=== PATIENT | male | born 2000 | race Hispanic/Latino ===

== ENCOUNTER 2024-04-16 22:06 | Emergency (ER) | payer SELFPAY ==
[2024-04-16] MEDS: ketOROlac 15MG/ML VIAL (15MG/ML) IM ONE (23:21)
--- NOTE | 2024-04-16 23:23 | ERN ---
ED Note History of Present Illness Stated Complaint: FALL, NASAL LAC Chief Complaint: Mechanical Fall Time Seen by MD: 22:43 Dictation: This is a 23-year-old obese male with severe schizophrenia was apparently wandering on the streets when police Department picked him up and he was eventually evaluated at [facility]. Subsequently he was transferred to [facility] unit for management yesterday. This morning when the nurses noticed he came out of his room with a bloody nose and laceration and active bleeding. He was unable to give much information and nurses basically sent him to the emergency room here with a history of fall which was unwitnessed. During my evaluation patient was extremely catatonic and basically was staring and very slow to answer questions however after a established communication he was shocked that he was still alive and he stated that he was trying to kill himself by banging his head and hurting himself. Temperature 97.5 pulse 100 respirations 18 blood pressure 136/94 with a pulse oximetry of 94% on room air Allergies: Coded Allergies: No Known Drug Allergies (Unverified Allergy, Unknown, 04/16/24) Past Medical History Past Medical History: Schizophrenia Surgical History: None PSYCH History: prior suicide attempt, schizophrenia Family History: Negative Social History: Negative RN Note Reviewed/Agreed w/PFSH: Yes Review of System Dictation Extremely difficult to obtain history and communicate with the patient due to severe schizophrenia and catatonic behavior. However he did intermittently mention when I had asked him if he had pain in the fractured nose area he did not yes Constitutional: Negative for fever,chills, and weight loss Eyes: Negative for injury, pain,redness, and discharge ENT: Negative for injury,pain or swelling Cardiovascular: Negative for chest pain, palpitations, and edema Respiratory: Negative for shortness of breath, cough, and wheezing, Abdomen/GI: Negative for abdominal pain, nausea, vomiting, diarrhea, and constipation Back: Negative for injury and pain : Negative for injury, bleeding and discharge MS/Extremity: Negative for injury and deformity Skin: Negative for rash, and discoloration Neuro: Negative for headache, weakness, numbness, tingling, and seizure Psych: Negative for suicide ideation, homicidal ideation, and hallucinations Initial Vital Sign VS Vital Signs Date Time Temp Pulse Resp B/P (MAP) Pulse Ox O2 Delivery O2 Flow Rate FiO2 04/16/24 22:14 97.5 100 18 136/94 99 Room Air 0 04/16/24 22:43 21 Physical Exam Dictation General: awake, alert, NAD morbidly obese, severe schizophrenia with a slow response to any question. Mostly mute however intermittently answers few questions, he was in his behavioral health scrubs Head/Face: Normocephalic, deformity of the nose with linear laceration of the nose extending on the nasal bridge to the tip of the nose. Old dried blood with surrounding edema and swelling. Small amount of the blood trickle down his lips and tongue. Eyes: PERRL, EOMI, vision at baseline ENT: oral cavity clear, TMs clear, no signs of infection Neck: Trachea midline, supple, no nuchal rigidity Cardiovascular: RRR, normal S1/S2, No MRGs, no JVD Respiratory: CTAB, no respiratory distress, No rales or wheezes Abdomen: Soft, non-tender, non-distended, normal bowel sounds, no guarding or rebound. Skin: Warm, dry, normal turgor, no rash MS/Extremity: Pulses equal, no cyanosis, neurovascular intact, FROM Neuro: COAx4, GCS 15, strength 5/5, CN 2-12 intact, normal cerebellar exam, nor mal gait, Psych: Normal behavior, mood, and affect normal Extremities-trace edema without any palpable cords, Homans sign is negative Results (Laboratory/Radiology) Laboratory/Radiology Laboratory Tests Test 04/16/24 23:39 White Blood Count 19.6 K/uL (4.8-10.8) H Red Blood Count 4.82 MIL/uL (4.50-6.20) Hemoglobin 14.8 g/dL (14.0-18.0) Hematocrit 41.9 % (42-54) L Mean Corpuscular Volume 86.9 fL (79-99) Mean Corpuscular Hemoglobin 30.7 pg (27.0-33.0) Mean Corpuscular Hemoglobin Concent 35.3 g/dL (32.0-36.0) Red Cell Distribution Width 12.5 % (11.0-15.5) Platelet Count 322 K/uL (130-400) Mean Platelet Volume 9.9 fL (7.5-10.5) Immature Granulocyte % (Auto) 0.5 % (0-1) Neutrophils (%) (Auto) 85.5 % (40.0-77.0) H Lymphocytes (%) (Auto) 6.5 % (21.0-51.0) L Monocytes (%) (Auto) 7.1 % (3.0-13.0) Eosinophils (%) (Auto) 0.1 % (0.0-8.0) Basophils (%) (Auto) 0.3 % (0.0-5.0) Neutrophils # (Auto) 16.8 K/uL (1.8-7.7) H Lymphocytes # (Auto) 1.3 K/uL (1.0-4.8) Monocytes # (Auto) 1.4 K/uL (0.1-1.0) H Eosinophils # (Auto) 0.02 K/uL (0.00-0.70) Basophils # (Auto) 0.05 K/uL (0.00-0.20) Absolute Immature Granulocyte (auto 0.09 K/uL (0-1) Nucleated Red Blood Cells 0.0 % (0.0-0.19) White Cell Morphology Comment CONSISTENT W/DIFF Sodium Level 147 mmol/L (136-145) H Potassium Level 3.3 mmol/L (3.5-5.1) L Chloride Level 106 mmol/L (101-111) Carbon Dioxide Level 31 mmol/L (21-32) Blood Urea Nitrogen 14 mg/dL (7-18) Creatinine 1.1 mg/dL (0.5-1.3) Glomerular Filtration Rate Calc 96 mL/min (>90) Random Glucose 106 mg/dL (70-105) H Total Calcium 9.3 mg/dL (8.5-10.1) Labs Reviewed?: Yes CT Scan Comment: PATIENT: DELROY HACKETT MR#: [id number] : 2000 SEX: M AGE: 23 LOCATION: [facility] ORDER 00 STATUS: REG REPORT#: [id number] SERVICE 99 REASON: severe facial injury deep laceration fo the nose ORDERING PHYSICIAN: ROBERTA AKERS MD PROCEDURE: [facility] WO - CT MAXILLOFACIAL W/O CONTRAST CT MAXILLOFACIAL W/O CONTRAST HISTORY: Status post fall COMPARISON: None TECHNIQUE: Multiple sequential high-resolution axial images of the paranasal sinuses were obtained. Postprocessing sagittal and coronal reconstruction images were also obtained. Patient was not given contrast through intravenous route. FINDINGS: Nasal septum is grossly midline. There is no evidence of mucoperiosteal thickening involving the paranasal sinuses. The infundibula are patent bilaterally. Comminuted fractures are seen of the nasal spine and bilateral nasal bones. Adjacent soft tissue swelling is seen. There is no evidence of air-fluid level in the paranasal sinuses. Parapharyngeal fat planes are preserved bilaterally. IMPRESSION: 1. Comminuted fractures are seen of the nasal spine and bilateral nasal bones. Adjacent soft tissue swelling is seen. CT was performed with one or more following dose reduction techniques: automated exposure control, adjustment of the mA and kv according to patient's size, or use of a iterative reconstruction technique. DICTATED BY: DERRICK SOLO MD DATE: 04/16/248 ELECTRONICALLY SIGNED BY: DERRICK SOLO MD DATE: 04/16/24 2341 ED Course ED Course Orders Procedure Category Date Status Time Cbc With Differential LAB 04/16/24 Complete 23:00 Basic Metabolic Panel LAB 04/16/24 Complete 23:00 Ct Maxillofacial W/O CT 04/16/24 Resulted Contrast 23:00 12 Lead Ekg Tracing- EKG 04/16/24 Logged Technical 23:00 Ketorolac PHA 04/16/24 Complete Tromethamine 15mg/Ml 23:30 Tetanus,Diphtheria PHA 04/17/24 Complete Tox [Adult] (Diphther 01:00 Morphine 2mg Syg PHA 04/17/24 Complete (Morphine 2mg Syg) 01:00 Ceftriaxone 1g Vial PHA 04/17/24 Complete (Rocephine 1g Inj) 01:00 Oxymetazolone Hcl PHA 04/17/24 In Process Western (Afrin) 01:00 Dermabond (Dermabond) PHA 04/17/24 In Process 01:00 Ceftriaxone 1g Vial PHA 04/17/24 Complete (Rocephine 1g Inj) 01:30 Current Medications Medications (Trade) Dose Ordered Sig/Jesu Route PRN Reason Start Time Stop Time Status Last Admin Dose Admin Ceftriaxone Sodium (ROCEphine 1G INJ) 1 gm ONCE ONCE IM 04/17/24 01:30 04/17/24 01:31 DC 04/17/24 01:16 Ceftriaxone Sodium (ROCEphine 1G INJ) 1 gm ONCE ONCE IVPB 04/17/24 01:00 04/17/24 01:02 DC Ketorolac Tromethamine (toRADol) 15 mg ONCE ONCE IM 04/16/24 23:30 04/16/24 23:31 DC 04/16/24 23:21 Morphine Sulfate (morPHINE 2MG SYG) 2 mg ONCE ONCE IVP 04/17/24 01:00 04/17/24 01:01 DC 04/17/24 01:16 Octyl Cyanoacrylate (Dermabond) 1 each ONCE TP 04/17/24 01:00 05/17/24 00:59 04/17/24 01:23 Oxymetazoline HCl (AFrin) 1 sprays ONCE EN 04/17/24 01:00 05/17/24 00:59 04/17/24 01:15 Tetanus/ Diphtheria Toxoids Adsorbed (DiphthERIA-teTANUS TOXOID [ADULT]/ DECAVAC) 0.5 ml ONCE ONCE IM 04/17/24 01:00 04/17/24 01:01 DC 04/17/24 01:23 Vital Signs Date Time Temp Pulse Resp B/P (MAP) Pulse Ox O2 Delivery O2 Flow Rate FiO2 04/16/24 22:43 100 18 134/84 97 Room Air* 0 21 04/16/24 22:14 97.5 100 18 136/94 99 Room Air 0 We will perform diagnostic labs, advanced imaging and administer medications according to the patient's complaint. Once the results are available, will review and personally interpreted the labs to rule out any acute life- threatening emergency the trach require immediate intervention and treatment. I will then re-evaluate the patient after treatment and diagnostic exams have return to determine whether the patient requires any further testing, can safely be discharged home or need further admission to hospital for additional treatment and evaluation. I reviewed the labs and also pursued a CT maxillofacial due to significant facial and nasal trauma. Patient was also given tetanus shot and empiric antibiotic therapy The CT scan of the facial bones showed isolated comminuted nasal bone fractures. No other fractures were seen. Once this was confirmed the laceration was repaired using Dermabond . Patient will be discharged on outpatient antibiotics back to the [facility] unit. Patient is accompanied by the behavioral health staff from the [facility] who was also updated to pass the information to the appropriate nurses and physicians in the [facility] unit Medical Decision Making MDM MDM: Differential diagnosis: Rationale: Tests considered and ordered secondary to shared decision making include: Previous outside records reviewed: Old ER visits. Risk of complication and/or morbidity or mortality of patient management: None Medications-Per medication reconciliation Need for hospitalization: Patient does not meet criteria for hospitalization. Need for emergency major/minor surgery: No There are no social concerns with this patient. Prescription drug management Prescriptions will include symptomatic care Patient's prior external medical records from other ER visits were reviewed by me as indicated. Prior testing and results from previous visits were reviewed. Prior tests were taken into account with medical decision making and resource utilization, independent historian/historians were used to obtain complete medical history. I independently interpreted the test that were performed, results were reviewed by me and considered findings on radiology if ordered. Medical management and examination interpretation discussions were had by me with other qualified healthcare professionals as indicated for the patient's care. Problem List Problem List: (1) Nasal bones, closed fracture (2) Laceration of nose (3) Injury of nose DX & DISP Disposition: Discharge Departure Impression: Primary Impression: Injury of nose Additional Impressions: Laceration of nose, Nasal bones, closed fracture, Schizophrenia Condition: Stable Additional Instructions: Patient and the caregiver have been informed of all the diagnostic tests and the imaging conducted during the today's visit to the emergency room and has verbalized understanding of the results I have personally reviewed and in terpreted all diagnostic exams performed here in the ER today as well as the vital signs documented by the nursing staff. The patient is now being discharged to [facility] and should follow up with the primary care physician or the specialist as directed by the ER staff. We have given him a handwritten prescription for Augmentin 875 mg twice a day for 10 days as it is a comminuted fracture of the nasal bone We also recommend that the patient be seen by ENT in follow-up ROBERTA AKERS MD Apr 16, 2024 23:23
--- NOTE | 2024-04-16 23:41 | HMCIMG ---
CT MAXILLOFACIAL W/O CONTRAST HISTORY: Status post fall COMPARISON: None TECHNIQUE: Multiple sequential high-resolution axial images of the paranasal sinuses were obtained. Postprocessing sagittal and coronal reconstruction images were also obtained. Patient was not given contrast through intravenous route. FINDINGS: Nasal septum is grossly midline. There is no evidence of mucoperiosteal thickening involving the paranasal sinuses. The infundibula are patent bilaterally. Comminuted fractures are seen of the nasal spine and bilateral nasal bones. Adjacent soft tissue swelling is seen. There is no evidence of air-fluid level in the paranasal sinuses. Parapharyngeal fat planes are preserved bilaterally. IMPRESSION: 1. Comminuted fractures are seen of the nasal spine and bilateral nasal bones. Adjacent soft tissue swelling is seen. CT was performed with one or more following dose reduction techniques: automated exposure control, adjustment of the mA and kv according to patient's size, or use of a iterative reconstruction technique.
[2024-04-16 23:46] LABS: BASOPHILS # (AUTO) 0.05 K/uL (0.00-0.20); BASOPHILS % (AUTO) 0.3 % (0.0-5.0); EOSINOPHILS # (AUTO) 0.02 K/uL (0.00-0.70); EOSINOPHILS % (AUTO) 0.1 % (0.0-8.0); HEMATOCRIT 41.9 % (42-54); IMMATURE GRANULOCYTE ABSOLUTE 0.09 K/uL (0-1); LYMPHOCYTES # (AUTO) 1.3 K/uL (1.0-4.8); LYMPHOCYTES % (AUTO) 6.5 % (21.0-51.0); MEAN CORPUSCULAR HEMOGLOBIN 30.7 pg (27.0-33.0); MEAN CORPUSCULAR HGB CONC 35.3 g/dL (32.0-36.0); MEAN CORPUSCULAR VOLUME 86.9 fL (79-99); MONOCYTES # (AUTO) 1.4 K/uL (0.1-1.0); MONOCYTES % (AUTO) 7.1 % (3.0-13.0); NEUTROPHILS # (AUTO) 16.8 K/uL (1.8-7.7); NEUTROPHILS % (AUTO) 85.5 % (40.0-77.0); PLATELET COUNT (AUTO) 322 K/uL (130-400); RED BLOOD CELL COUNT(AUTO) 4.82 MIL/uL (4.50-6.20); RED CELL DISTRIBUTION WIDTH 12.5 % (11.0-15.5); WHITE BLOOD COUNT (AUTO) 19.6 K/uL (4.8-10.8)
[2024-04-16 23:55] LABS: CREATININE 1.1 mg/dL (0.5-1.3); POTASSIUM 3.3 mmol/L (3.5-5.1)
[2024-04-17] MEDS ORDERED: cefTRIAXone 1G VIAL IVPB ONE (01:00)
[2024-04-17] MEDS: OXYmetazolone HCL SPRAY 15 ML BOTTLE EN SCH (01:15)
[2024-04-17] MEDS: morPHINE 2 MG SYG IVP ONE (01:16)
[2024-04-17] MEDS: cefTRIAXone 1G VIAL IM ONE (01:16)
[2024-04-17] MEDS: OCTYL 2-CYANOACRYLATE 1 EACH TP SCH (01:23)
[2024-04-17] MEDS: teTANUS/diphthERIA TOXOID [ADULT] 0.5 ML VIAL IM ONE (01:23)
[2024-04-17 01:27] LABS: WBC MORPHOLOGY CONSISTENT W/DIFF
[2024-04-17 02:15] VITALS: BP 143/82; PULSE 89; RESP 18; TEMP 98.4; O2SAT 97
--- NOTE | 2024-04-17 08:52 | EKG ---
[facility] Test Date: 2024-04-16 Test Time: 23:08:00 Pat Name: DELROY HACKETT Department: ED Room: Gender: M Manager Route: 1081 : 2000 Requested By: ROBERTA AKERS Order Number: [id number] Reading MD: Fred Mills Measurements Intervals [place] Rate: 100 P: 25 SD: 171 QRS: 50 QRSD: 92 T: 23 QT: 342 QTc: 442 Interpretive Statements Sinus tachycardia No previous ECG available for comparison Electronically Signed On 04-17-2024 19:34:18 [employer] DEVELOPER by Fred Mills Please click the below link to view image of tracing.
== END 2024-04-17 02:17 ==
LOC: EDH 22:06
DX: S02.2XXA Fracture of nasal bones, initial encounter for closed fracture (principal); S01.21XA Laceration without foreign body of nose, initial encounter; F20.9 Schizophrenia, unspecified; W18.39XA Other fall on same level, initial encounter; Y93.89 Activity, other specified; Y92.89 Other specified places as the place of occurrence of the external cause; Y99.8 Other external cause status
CPT/HCPCS: 99285; 70486; 80048; 85025; 36415; 96372 ×2; 93005; 96374; 12013; 90714; 90471; J1885; J2270; J0696